=== PATIENT | female | born 1960 | race American Indian/Alaskan Native ===

== ENCOUNTER → 2019-06-12 | Outpatient (CLI) | payer OTHER, BC | END | disposition home or self-care (01) | LOC: LAB SHORT 17:53 → LAB 17:53 | DX: M79.641 Pain in right hand (principal) | CPT/HCPCS: 85651 ==

== ENCOUNTER → 2019-10-11 | Outpatient (CLI) | payer OTHER, BC | LOC: LAB EV 11:40 → LAB SHORT 11:40 | DX: N39.0 Urinary tract infection, site not specified (principal) | CPT/HCPCS: 87077; 87086; 87186 ==

== ENCOUNTER → 2019-11-06 | Outpatient (CLI) | payer OTHER, BC ==
[2019-11-07 11:41] LABS: Candida species (DNA Probe) Negative (NEGATIVE); G. vaginalis (DNA Probe) Negative (NEGATIVE); T. vaginalis (DNA Probe) Negative (NEGATIVE)
[2019-11-07 14:09] LABS: HPV 16 Negative (Negative); HPV 18 Negative (Negative); HPV OTHER HR TYPES Negative (Negative)
== END | disposition home or self-care (01) ==
LOC: LAB 10:47 → LAB SHORT 10:47
PROVIDERS: Advanced Practice Midwife
DX: Z01.419 Encounter for gynecological examination (general) (routine) without abnormal findings (principal); N93.9 Abnormal uterine and vaginal bleeding, unspecified
CPT/HCPCS: 87480; 87510; 87624; 87660; G0123

== ENCOUNTER 2024-03-30 17:28 | Emergency (ER) | payer MEDICARE, BC ==
[~2024-03-30] VITALS: Ht 165.1 cm; Wt 113.4 kg
[2024-03-30 18:02] VITALS: BP 149/86
[2024-03-30] MEDS ORDERED: HYDR1TAB94 PO (19:55)
[2024-03-30] MEDS ORDERED: Ketorolac Tromethamine 15mg Vial IM ONE (19:55)
[2024-04-01] MEDS ORDERED: MULVITA PO (13:21)
== END 2024-03-30 20:13 | disposition home or self-care (01) ==
LOC: ER 17:28
DX: S82.141A Displaced bicondylar fracture of right tibia, initial encounter for closed fracture (principal); S93.401A Sprain of unspecified ligament of right ankle, initial encounter; W11.XXXA Fall on and from ladder, initial encounter
CPT/HCPCS: 73590; 96372; 99283-25; J1885

== ENCOUNTER 2024-04-02 08:51 | Day surgery (SDC) | payer MEDICARE, BC ==
[2024-04-02] VITALS (13 sets, daily range): BP systolic 116–134; BP diastolic 69–90
[~2024-04-02] VITALS: Ht 165.1 cm; Wt 95.0 kg
[~2024-04-02 08:51] MED LIST: HYDR1TAB94 PO; MULVITA PO
[2024-04-02] MEDS ORDERED: CeFAZolin Sodium 2,000 MG in NS 100 ML IV SCH ×2 (09:10→18:00)
[2024-04-02] MEDS ORDERED: Lactated Ringer's 1,000 ML IV SCH (09:10)
[2024-04-02] MEDS ORDERED: Ropivacaine 0.5% HCl/Pf 123.125 MG,EPINEPHrine HCL 0.25 MG,Ketorolac Tromethamine 15 MG... INFIL SCH (09:35)
[2024-04-02] MEDS ORDERED: CeFAZolin Sodium 2,000 MG VIAL ONE (09:42)
[2024-04-02] MEDS ORDERED: Midazolam HCl 1MG / ML 2ML Vial IV ONE (09:55)
[2024-04-02] MEDS ORDERED: FentaNYL Citrate 50 MCG/ML 2 ML Injection ONE ×2 (10:19→10:29)
[2024-04-02] MEDS ORDERED: propofoL 20 ML IV ONE (10:19)
[2024-04-02] MEDS ORDERED: CeFAZolin Sodium 1000 mg Vial ONE (10:26)
[2024-04-02] MEDS ORDERED: Ondansetron HCl 2 MG / ML 2ML Vial ONE (10:28)
[2024-04-02] MEDS ORDERED: Ketorolac Tromethamine 30mg Vial ONE (10:28)
[2024-04-02] MEDS ORDERED: Dexamethasone Sod Phos 10 MG/ML 1ML VIAL ONE (10:28)
[2024-04-02] MEDS ORDERED: HYDROmorphone HCl/Pf 1MG SYR ONE (12:03)
[2024-04-02] MEDS ORDERED: Sugammadex Sodium 200 MG/2ML SDV (100 MG/ML) ONE (12:07)
[2024-04-02] MEDS ORDERED: Tranexamic Acid 100 ML IV ONE (12:08)
[2024-04-02] MEDS ORDERED: OxyCODONE 5 mg/Acetamin 325 mg TABLET PO PRN ×2 (12:55→13:55)
--- NOTE | 2024-04-02 13:50 | NUR ---
TRANSFER TO UNIT PATIENT TRANSFERRED TO UNIT S/P R PLATEAU TIBIA ORIF AT APPROX 1330. PATIENT LETHARGIC POST OP, EASILY AROUSABLE WITH VERBAL STIMULI. VSS. DENIES PAIN AT THIS TIME. REPORTS MILD NAUSEA, NO VOMITING - DECLINING MEDICATION AT THIS TIME. TOLERATING SMALL SIPS OF WATER. IVF INFUSING TO GRAVITY. RLE IN IMMOBILIZER WITH WALLY WRAP DRESSING - NO SHADOWING NOTED ON WALLY WRAP. COOLING DEVICE IN PLACE. PPP. CAP REFILL <3 SECONDS. DENIES NUMBNESS/TINGLING. AT BEDSIDE. CALL LIGHT IN REACH.
[2024-04-02] MEDS ORDERED: HYDROmorphone HCl/Pf 1MG SYR IV PRN (13:55)
[2024-04-02] MEDS ORDERED: Tranexamic Acid 1,000 MG in NS 100 ML IV ONE (15:10)
--- NOTE | 2024-04-02 16:41 | NUR ---
SHIFT SUMMARY NO ACUTE CHANGES SINCE ARRIVAL TO UNIT. PATIENT SLEPT THROUGHOUT AFTERNOON, EASILY AROUSABLE WITH VERBAL STIMULI. VSS. SBP 110s-130s. MAP >65. PLACED ON 2L VIA NC WITH SLEEP SATs SUSTAINING 88-89%. DRESSING TO RLE REMAINS C/D/I. IMMOBILIZER IN PLACE. HAS YET TO AMBULATE POST OP - NWB RLE. DENIES PAIN. AWAITING SPONTANEOUS POST OP VOID. TOLERATING SMALL SIPS OF WATER AND A FEW BITES OF SNACK. CALL LIGHT IN REACH.
[2024-04-03] VITALS: BP 115/80
[2024-04-03 05:06] VITALS: BP 122/73
--- NOTE | 2024-04-03 06:04 | NUR ---
SHIFT SUMMARY POD 1 L TKA. DRESSING AND WALLY WRAP CDI, CYRO IN PLACE. PAIN MANAGED PER EMAR. AMBULATING WITH FWW, GB, SBA. DOM PO INTAKE, DENIES N/V. IS VOIDING. IV SL. PT DRESSED AND UP IN CHAIR. PLAN TO WORK WITH THERAPY AND D/C HOME TODAY.
--- NOTE | 2024-04-03 06:18 | NUR ---
SHIFT SUMMARY POD 1 RIGHT TIBIAL ORIF, DRESSING CDI. PAIN MANAGED PER EMAR. IMMOBILIZER AND POLAR PACK TO RLE. DOM PO INTAKE. ABX INFUSED PER ORDERS. IV SL. IS A/OX4 WITH VSS. PLAN TO WORK WITH THERAPY TODAY. PT UP IN CHAIR. WILL GIVE REPORT TO ONCOMING RN
[2024-04-03 07:59] VITALS: BP 128/82
[2024-04-03] MEDS ORDERED: ASPI81CH PO (10:00)
[2024-04-03] MEDS ORDERED: Percocet 5-3251 EACH PO (10:02)
--- NOTE | 2024-04-03 11:25 | NUR ---
DISCHARGE NOTE THIS RN ASSUMED CARE AT APPROX 0715. PATIENT ALERT AND ORIENTED X4 - UP IN CHAIR. COMMUNICATING NEEDS EFFECTIVELY. VSS. POD 1 R TIBIA ORIF - DRESSING TO RLE CHANGED THIS MORNING BY MD THAO TO AQUACEL C/D/I. IMMOBILIZER IN PLACE. MANAGING PAIN PER EMAR AND WITH COOLING DEVICE. WORKED WITH PHYSICAL THERAPY THIS MORNING - CLEAR TO DC HOME WITH HH FOR DEVICE SET UP/SAFETY CHECK AT HOME. SHOWERED THIS MORNING WITH SBA. TOLERATING PO INTAKE. VOIDING. X1 BM THIS MORNING. IV REMOVED. DC EDUCATION PROVIDED TO PATIENT AND HER - BOTH STATE UNDERSTANDING. PATIENT TRANSFERRED OFF UNIT VIA AT APPROX 1115 FOR DC. PERSONAL BELONGINGS, INCLUDING COOLING DEVICE AND EXTRA AQUACEL DRESSINGS, WITH PATIENT.
== END 2024-04-03 11:21 | disposition home or self-care (01) ==
LOC: SDS 08:51 → SURS 13:11 → SDS 04-03 11:21
PROVIDERS: Orthopaedic Surgery
PROC: 0QSG04Z Reposition Right Tibia with Internal Fixation Device, Open Approach (ICD-10-PCS; principal; 2024-04-02 10:30)
DX: S82.141A Displaced bicondylar fracture of right tibia, initial encounter for closed fracture (principal); X58.XXXA Exposure to other specified factors, initial encounter
CPT/HCPCS: 97110; 97116; 97162; 97530; A9270; C1713; J0171; J0690; J0735; J1100; J1171; J1885; J2250; J2405; J2704; J2795; J3010; J7120